=== PATIENT | male | born 1970 | race African-American/Black ===

== ENCOUNTER 2020-05-04 09:29 | Emergency (ER) | payer BC ==
[2020-05-04] MEDS ORDERED: EPINEPHRINE INJ/PF 1 MG/1 ML AMPULE IM ONE (09:43)
[2020-05-04] MEDS ORDERED: DIPHENHYDRAMINE HCL 50 MG/ML VIAL IV ONE (09:44)
[2020-05-04] MEDS ORDERED: METHYLPREDNISOLONE INJ 125 MG/2 ML SDV IV ONE (09:44)
[2020-05-04] MEDS ORDERED: FAMOTIDINE INJ/PF 20 MG/2 ML SDV IV ONE (09:44)
--- NOTE | 2020-05-04 09:51 | ER Document Report ---
ED General - General Chief Complaint: Allergic Reaction Stated Complaint: POSSIBLE ALLERGIC REACTION/SWOLLEN TONGUE Time Seen by Provider: 05/04/20 09:42 TRAVEL OUTSIDE OF THE [place] IN LAST 30 DAYS: No - HPI Notes: Chief complaint: Swelling of tongue History of present illness: 49-year-old male with history of hypertension taking multiple medications including lisinopril for a number of years awakened this morning with new swelling of his tongue. He is never had this previously. He denies any difficulty breathing at this time. He indicates that the degree of swelling has not changed since he awakened. Patient was seen at [facility] emergency department yesterday for muscular strain of his back and states he was given "for little tablets" by mouth there and no other changes were made in his medications. Patient reports past history of a rash when he was given naproxen many years ago. He denies any other known allergies. - Related Data Allergies/Adverse Reactions: No Known Allergies Allergy (Unverified 11/23/14 22:42) Past Medical History - General Information source: Patient, Relative, [facility] Records - Social History Smoking Status: Current Every Day Smoker Frequency of alcohol use: Rare Drug Abuse: None Family History: CAD, DM, Malignancy - Past Medical History Cardiac Medical History: Reports: Hx Hypercholesterolemia, Hx Hypertension, Hx Heart Murmur, Other - Pacemaker Pulmonary Medical History: Reports: None Endocrine Medical History: Denies: Hx Diabetes Mellitus Type 1, Hx Diabetes Mellitus Type 2 Musculoskeletal Medical History: Reports Hx Muscle Spasm Past Surgical History: Reports: Hx Pacemaker Review of Systems - Review of Systems Notes: Constitutional: Negative for fever. HENT: As per HPI. Eyes: Negative for visual changes. Cardiovascular: Negative for chest pain. Respiratory: Negative for shortness of breath. Gastrointestinal: Negative for abdominal pain, vomiting or diarrhea. Genitourinary: Negative for dysuria. Musculoskeletal: Recent back pain. Skin: Negative for rash. Neurological: Negative for headaches, weakness or numbness. 10 point ROS negative except as marked above and in HPI. Physical Exam - Vital signs Vitals: Pulse BP Pulse Ox 90 162/113 H 95 05/04/20 09:37 05/04/20 09:37 05/04/20 09:37 - Notes Notes: GENERAL: Well-developed well-nourished male approximately stated age appearing somewhat anxious. SKIN: Good turgor no rashes. HEAD: Normocephalic atraumatic. EYES: PERRLA. EOMI. Conjunctivae and sclerae clear. EARS: CANALS AND TMS CLEAR. NOSE: CLEAR. MOUTH: Mild edema restricted to anterior tongue. There is no edema of the lips, uvula or soft palate. Moist mucosa. Good dentition. No hoarseness. No stridor or no drooling. NECK: Supple. No masses or thyromegaly. No adenopathy. Carotids 2+ without bruits. No JVD. BACK: Symmetrical without tenderness. CHEST: Pacemaker upper left anterior chest wall. Respirations unlabored. Breath sounds clear and symmetrical. HEART: Regular rhythm. No murmur gallop or rub. ABDOMEN: Soft nontender without masses, organomegaly or rebound. Bowel sounds normally active. No bruits. GENITALIA: Deferred. EXTREMITIES: No edema. No calf tenderness. Cap refill less than 1.5 seconds. Dorsalis pedis and posterior tibial pulses 3+ and symmetrical. NEUROLOGICAL: GCS 15. Alert and oriented x3. Normal gait. Fluent speech. Cranial nerves II through XII intact. Sensorimotor and cerebellar normal. Normal tone. PSYCHIATRIC: Appropriate affect. Course - Re-evaluation Re-evalutation: 05/04/20 14:31 Patient was given IM epi, IV Solu-Medrol, IV diphenhydramine and IV famotidine. Swelling of the tongue rapidly resolved. He is remained hemodynamically stable has been observed several hours in the emergency department with no recurrence of swelling. I believe he is stable for discharge. We will discontinue his lisinopril and keep him on steroids and antihistamines for the next several days. He is instructed to follow-up with his primary care physician tomorrow. Findings, clinical impression and plan of treatment have been discussed with patient/family. Understanding of current findings and recommendations has been acknowledged by them and there is agreement regarding disposition and follow-up. - Vital Signs Vital signs: Temp Pulse Resp BP Pulse Ox 98.2 F 90 20 153/89 H 99 05/04/20 10:01 05/04/20 09:37 05/04/20 10:01 05/04/20 10:01 05/04/20 10:01 Critical Care Note - Critical Care Note Total time excluding time spent on procedures (mins): 60 - Angioedema. IV O2 monitor. IV famotidine and diphenhydramine. IM epi. Discharge - Discharge Clinical Impression: Angioedema, Adverse reaction to lisinopril Condition: Stable Disposition: HOME, SELF-CARE Additional Instructions: Discontinue lisinopril and do not take this medication at any time in the future. Take prescribed medications. You have been provided a doctor's note for work for the next 3 days. Return here as needed for new or worsening symptoms: Recurrence of swelling of your tongue lips or face Pain that is worsening or unimproved Uncontrolled vomiting High fever or shaking chills Overall worsening Prescriptions: Hydroxyzine HCl [Atarax 10 mg Tablet] 25 mg PO TID 5 Days #15 tablet Prednisone [Deltasone 20 mg Tablet] 2 tab PO DAILY 5 Days tablet Famotidine 40 mg PO BID 5 Days #10 tablet
[2020-05-04 15:14] VITALS: BP 160/97
== END 2020-05-04 15:54 | disposition home or self-care (01) ==
LOC: ER 09:29
DX: T78.3XXA Angioneurotic edema, initial encounter (principal); T46.4X5A Adverse effect of angiotensin-converting-enzyme inhibitors, initial encounter; R22.0 Localized swelling, mass and lump, head; R21 Rash and other nonspecific skin eruption; Y92.9 Unspecified place or not applicable; I10 Essential (primary) hypertension; F17.200 Nicotine dependence, unspecified, uncomplicated
CPT/HCPCS: 99284; 96372; 96374; 96375; J1200; J0171; J2930; S0028